=== PATIENT | female | born 1980 | race African-American/Black ===

== ENCOUNTER 2016-07-28 18:19 | Emergency (ER) | payer OTHER ==
[~2016-07-28] VITALS: Ht 157.5 cm; Wt 120.0 kg
[~2016-07-28 18:19] MED LIST: GLUCTAB PO; PROBCAP4 PO
[2016-07-28 18:28] VITALS: BP 139/82; PULSE 96; RESP 16; TEMP 98.5; O2SAT 99
--- NOTE | 2016-07-28 18:48 | PD ---
Physical Exam Time Seen by Provider: 18:44 Narrative 36yo F, 22 weeks 4 days , c/o neck pain, back pain, upper and lower abdominal pain. Denies hitting head or LOC. Arrived via [facility]. Feels baby moving. Anthony vomiting. Called L&D and requested medical clearance first. Cervical collar placed in triage. Patient stable. Patient seen in triage. Awaiting bed placement. Data Data Last Documented VS Vital Signs Date Time Temp Pulse Resp B/P Pulse Ox O2 Delivery O2 Flow Rate FiO2 07/28/16 18:28 98.5 96 16 139/82 99 MDM Supervised Visit with VANI: Tosha Espinoza Jul 28, 2016 18:48
[2016-07-28] MEDS ORDERED: OB CCAP2 (20:12)
[2016-07-28] MEDS ORDERED: ACETAMINOPHEN 325 MG TAB PO ONE (20:30)
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
== END 2016-07-28 23:10 | disposition home or self-care (01) ==
LOC: NEPD 18:19 → HOBED 23:10
DX: S13.4XXA Sprain of ligaments of cervical spine, initial encounter (principal); S06.0X0A Concussion without loss of consciousness, initial encounter; O26.892 Other specified pregnancy related conditions, second trimester; R10.9 Unspecified abdominal pain; Z3A.22 22 weeks gestation of pregnancy; V43.52XA Car driver injured in collision with other type car in traffic accident, initial encounter; Y93.9 Activity, unspecified; Y92.9 Unspecified place or not applicable; Y99.9 Unspecified external cause status
CPT/HCPCS: 70450; 72125; 99284; L0150

== ENCOUNTER → 2016-09-02 | Outpatient (CLI) | payer OTHER ==
[~2016-09-02] MED LIST changes: -GLUCTAB PO; +OB CCAP2; -PROBCAP4 PO
== END ==
LOC: HPND 10:22
PROVIDERS: ATTEND Obstetrics & Gynecology
DX: O24.414 Gestational diabetes mellitus in pregnancy, insulin controlled (principal); Z3A.23 23 weeks gestation of pregnancy
CPT/HCPCS: 76811; 76825; 76827; 93325

== ENCOUNTER → 2016-09-29 | Outpatient (CLI) | payer OTHER | LOC: HPND 09:46 | PROVIDERS: ATTEND Obstetrics & Gynecology | DX: O24.012 Pre-existing type 1 diabetes mellitus, in pregnancy, second trimester (principal); O09.522 Supervision of elderly multigravida, second trimester; O99.212 Obesity complicating pregnancy, second trimester; E66.01 Morbid (severe) obesity due to excess calories; Z68.42 Body mass index [BMI] 45.0-49.9, adult | CPT/HCPCS: 76816 ==

== ENCOUNTER 2016-10-24 07:30 | Inpatient (IN) | payer OTHER ==
[~2016-10-24] VITALS: Ht 157.5 cm; Wt 122.0 kg
--- NOTE | 2016-11-27 14:50 | MH ---
cc: VINOD KEN M.D. DATE OF ADMISSION: 11/28/2016 DATE OF 1980 PATIENT HISTORY The patient is a 36-year-old female 3, para 2, last menstrual period was February 22, 2016. Estimated due date is December 04, 2016. The patient is 39 weeks gestation. The patient's course has been complicated by type 2 diabetes mellitus. The patient had not been treated previously to her conception. She has been managed by an brick paving checker, Dr. Raphael, using NPH up to 100 units q. h.s. and sliding scale of regular NovoLog before meals. The patient's blood sugars have been in a good control range with fasting blood sugars below 100. The patient's recent hemoglobin A1c was 5.8. The patient's has also been significant in the context that her spouse unexpectedly during the first trimester. The patient has been struggling emotionally but managing well. OBSTETRICAL HISTORY The patient has a history of group B strep. Her blood type is A+, sickle cell negative. Previous pregnancies 1999, she had a vaginal of a female weighing 6 pounds 3 ounces. In 2002 she had a for her son who weighed 8 pounds 11 ounces. The patient also has been scheduled for a tubal ligation at the time of her elective repeat section. PAST MEDICAL HISTORY Type 2 diabetes, obesity. Chronic hypertension, is managed off medication. The patient's history of advanced maternal age with normal genetic analysis. ALLERGIES The patient has no known drug allergies. CURRENT MEDICATIONS As stated above. PAST SURGICAL HISTORY Status post hysteroscopy in 2014 and also had section 2002. SOCIAL HISTORY The patient is a , a single mom, employed as a school counselor, guidance counselor. She denies the use of tobacco, alcohol or illicit substances. Drug screen was negative during this . PHYSICAL EXAMINATION GENERAL: The patient's physical exam the patient well-appearing, well-nourished female in no acute stress. VITAL SIGNS: Stable. Blood pressures 120/80. She weighs 275 pounds. She is 5 feet 2. BMI is over 43. The patient's heart rate is in the 140s and reactive. Recent nonstress test was category one and reactive. HEENT/NECK: Shows no adenopathy. Neck is supple. Full range of motion. LUNGS: Lungs were clear in all moss. CARDIAC: Regular rate and rhythm. ABDOMEN: Abdomen is obese, gravid, fundal height measures 42 cm. PELVIC: Exam is deferred. The patient is not having any symptoms of labor, bleeding or leakage of fluid. EXTREMITIES: Extremities are symmetrical, full range of motion. She has 1+ pitting edema. There is no clonus or rebound. There is no cyanosis, clubbing or edema. NEUROLOGIC: Exam is grossly intact, nonfocal. ASSESSMENT The patient is 39 weeks intrauterine gestation, previous section for elective repeat section and tubal ligation, history of type 2 diabetes managed on insulin, chronic hypertension, stable off medication, morbid obesity, history of group B strep positive. Vinod Ken MD [facility]/EO /5:35 PM /2:48 PM
[2016-11-28] VITALS (21 sets, daily range): BP systolic 118–131; BP diastolic 73–83; PULSE 65–86; RESP 16–22; TEMP 97.7–98.5; O2SAT 99–100
[2016-11-28 06:37] LABS: AUTOMATED NEUTROPHIL # 4.2 TH/MM3 (1.8-7.7); BASOPHIL % 0.3 % (0.0-2.0); EOSINOPHIL # 0.1 TH/MM3 (0-0.4); HEMATOCRIT 37.7 % (35.0-46.0); HEMO FLAGS DIFF FINAL; LYMPHOCYTE # 2.2 TH/MM3 (1.0-4.8); MEAN CELL VOLUME 79.3 FL (80.0-100.0); MEAN CORPUSCULAR HEMOGLOBIN 25.7 PG (27.0-34.0); MEAN CORPUSCULAR HGB CONC 32.4 % (32.0-36.0); MONO % 8.3 % (0.0-8.0); NEUT % 59.4 % (16.0-70.0); PLATELET COUNT 263 TH/MM3 (150-450); RED BLOOD COUNT 4.75 MIL/MM3 (4.00-5.30); RED CELL DISTRIBUTION WIDTH 17.4 % (11.6-17.2)
[2016-11-28 06:48] LABS: BACTERIA, URINE OCC /hpf; BLOOD, URINE NEG (NEG); COMMENT (UR) CULT NOT INDICATED; CULTURE IF INDICATED CULT NOT INDICATED; GLUCOSE,URINE NEG (NEG); KETONE, URINE 10 mg/dL (NEG); MUCUS URINE FEW /lpf (OCC); NITRITE,URINE NEG (NEG); PH, URINE 6.5 (5.0-8.5); SQUAMOUS EPITHELIAL CELL URINE 6 /hpf (0-5); URINE COLOR YELLOW (YELLW/STRAW)
[2016-11-28] MEDS ORDERED: ONDANSETRON HCL 4 MG/2 ML VIAL ONE (07:12)
[2016-11-28] MEDS ORDERED: OXYTOCIN 10 UNIT/ML AMP ONE (07:12)
[2016-11-28] MEDS ORDERED: MORPHINE SULFATE PF 5 MG/10 ML VIAL ONE (07:12)
[2016-11-28] MEDS ORDERED: LACTATED RINGER'S 1000 ML IV ONE (07:15)
[2016-11-28] MEDS ORDERED: CITRIC ACID-SODIUM CITRATE LIQ 30 ML UDC PO SCH (07:15)
[2016-11-28] MEDS ORDERED: ceFAZolin 2 GM PREMIX 50 ML IV SCH (07:15)
[2016-11-28] MEDS ORDERED: LACTATED RINGER'S 1000 ML IV SCH (07:15)
[2016-11-28] MEDS ORDERED: EPIDURAL-DIPHENHYDRAMINE HCL 50 MG CAP PO PRN (07:30)
[2016-11-28] MEDS ORDERED: oxyCODONE/ACETAMINOPHEN 5 MG/325 MG TAB PO PRN (07:30)
[2016-11-28] MEDS ORDERED: SODIUM CHLORIDE 0.9% FLUSH 10 ML FLUSH IV FLUSH PRN (07:30)
[2016-11-28] MEDS ORDERED: EPIDURAL-DO NOT ADMINISTER ANTICOAGULANTS PRN (07:30)
[2016-11-28] MEDS ORDERED: OXYTOCIN 30 UNITS-500ML PREMIX 500 ML IV ONE (07:30)
[2016-11-28] MEDS ORDERED: EPIDURAL-NALOXONE HCL 0.4 MG/ML AMP IV PRN (07:30)
[2016-11-28] MEDS ORDERED: EPIDURAL-DIPHENHYDRAMINE HCL 50 MG/ML VIAL IV PUSH PRN (07:30)
[2016-11-28] MEDS ORDERED: EPIDURAL-NO SYSTEMIC NARCOTICS PRN (07:30)
[2016-11-28] MEDS ORDERED: ACETAMINOPHEN 325 MG TAB PO PRN (07:30)
[2016-11-28] MEDS ORDERED: ONDANSETRON HCL 4 MG/2 ML VIAL IV PUSH PRN (07:30)
[2016-11-28] MEDS ORDERED: GLUCAGON 1 MG/ML VIAL OTHER PRN (07:30)
[2016-11-28] MEDS ORDERED: DEXTROSE 50% IN WATER 50 ML VIAL(D50) IV PRN (07:30)
[2016-11-28] MEDS ORDERED: ACETAMINOPHEN 1000 MG/100 ML VIAL IV ONE (08:00)
[2016-11-28] MEDS ORDERED: ACETAMINOPHEN 1000 MG/100 ML 100 ML IV ONE (08:08)
--- NOTE | 2016-11-28 08:54 | PD.OB.DELI ---
Procedure Note Section Procedure Performed by Vinod Jay Procedure: Repeat Low Transverse Sec (with tubal ligation) Indication for delivery: Desired elective repeat Previous condition: Other Informed consent obtained: For anesthesia, For procedure Confirmed correct: Patient, Procedure, Site, Time-out taken Anesthesia: Spinal Medication prior to procedure: As documented in eMAR Monitoring during procedure: Blood pressure monitoring, media monitor, doppler, Pulse oximetry Sterile preparation: Duraprep, In usual fashion Position: Supine with wedge to right side, Supine with safety belt applied Operative Features Skin Incision: Pfannenstiel Uterine Incision: Low transverse w/knife / blunt ext, Low transverse w/knife / scissors Membranes Ruptured: Artificially Presentation: Occiput anterior Delivery date: Nov 28, 2016 Delivery time: 00:00 Delivery of infant: Assisted (kiwi vacuum) : Male One Minute : 8 Five Minute : 9 Weight: 7/5 Status of infant: Viable Placenta delivered: Intact Medications: Antibiotics, Oxytocin Procedure tolerated: Well Maternal Condition: Stable Condition: Stable Vinod Jay MD Nov 28, 2016 08:54
[2016-11-28] MEDS ORDERED: SODIUM CHLORIDE 0.9% FLUSH 10 ML FLUSH IV FLUSH SCH (09:00)
[2016-11-28] MEDS: INSULIN NovoLIN REGULAR SUPPLEMENTAL SCALE SQ SCH ×3 (11:00→21:00)
[2016-11-28] MEDS ORDERED: LACTATED RINGER'S 1000 ML INJ 1,000 ML IV SCH (12:21)
[2016-11-28] MEDS ORDERED: OXYTOCIN 30 UNITS-500ML PREMIX 500 ML IV PRN (17:30)
[2016-11-28] MEDS: oxyCODONE/ACETAMINOPHEN 5 MG/325 MG TAB PO PRN (23:14)
[2016-11-28] MEDS: IBUPROFEN 600 MG TAB PO PRN (23:14)
[2016-11-29 03:40] VITALS: BP 100/61; PULSE 70; RESP 18; TEMP 97.7
[2016-11-29 03:59] LABS: AUTOMATED NEUTROPHIL # 4.2 TH/MM3 (1.8-7.7); BASOPHIL % 0.3 % (0.0-2.0); EOSINOPHIL # 0.1 TH/MM3 (0-0.4); EOSINOPHIL % 2.1 % (0.0-4.0); HEMATOCRIT 34.2 % (35.0-46.0); HEMO FLAGS DIFF FINAL; LYMPH % 24.2 % (9.0-44.0); LYMPHOCYTE # 1.5 TH/MM3 (1.0-4.8); MEAN CELL VOLUME 79.5 FL (80.0-100.0); MEAN CORPUSCULAR HEMOGLOBIN 25.5 PG (27.0-34.0); MONO % 5.5 % (0.0-8.0); NEUT % 67.9 % (16.0-70.0); PLATELET COUNT 216 TH/MM3 (150-450); RED CELL DISTRIBUTION WIDTH 16.9 % (11.6-17.2); WHITE BLOOD COUNT 6.2 TH/MM3 (4.0-11.0)
[2016-11-29] MEDS: INSULIN NovoLIN REGULAR SUPPLEMENTAL SCALE SQ SCH ×2 (07:00→11:00)
[2016-11-29] MEDS: oxyCODONE/ACETAMINOPHEN 5 MG/325 MG TAB PO PRN ×3 (07:19→22:50)
[2016-11-29] MEDS: IBUPROFEN 600 MG TAB PO PRN ×3 (07:19→22:49)
[2016-11-29 07:50] VITALS: BP 109/62; PULSE 68; RESP 18; TEMP 98.2
[2016-11-29] MEDS: HEPARIN SODIUM - SQ 10,000 UNITS/ML VIAL SQ SCH ×2 (09:47→21:14)
--- NOTE | 2016-11-29 10:09 | HHI.OB ---
Subjective Post Operative Day: 1 Remarks FS good,93, OOB , ambulating, voiding, pain controlled Objective Vitals/I&O Vital Signs Date Time Temp Pulse Resp B/P (MAP) Pulse Ox O2 Delivery O2 Flow Rate FiO2 11/29/16 03:40 97.7 70 18 100/61 (74) 11/28/16 23:23 98.5 86 22 118/75 (89) 11/28/16 19:40 98.3 83 20 120/77 (91) 11/28/16 15:00 98.5 74 16 11/28/16 15:00 119/74 (89) 11/28/16 10:35 98.2 66 20 121/78 (92) Result Diagram: 11/29/168 Objective Remarks GENERAL: Well-nourished, well-developed patient. CARDIOVASCULAR: Regular rate and rhythm without murmurs, gallops, or rubs. RESPIRATORY: Breath sounds equal bilaterally. No accessory muscle use. ABDOMEN/GI: Abdomen soft, non-tender, bowel sounds present. Incision: zeeshan Clean, dry and intact. Fundus: Firm, non-tender at umbilicus. GENITOURINARY: Light to moderate bleeding. EXTREMITIES: No cyanosis or edema, non-tender, without signs of DVT. Medications and IVs Current Medications Medications (Trade) Dose Ordered Sig/Brinda Route Start Time Stop Time Status Last Admin (Bicitra Liq) 30 ml OYSTER CULLER PO 11/28/16 07:15 12/01/16 07:14 11/28/16 07:10 Oxytocin 500 ml @ 100 mls/hr UNSCH X1 PRN IV 11/28/16 17:30 11/29/16 17:29 11/28/16 12:57 (NS Flush) 2 ml BID IV FLUSH 11/28/16 09:00 (NS Flush) 2 ml UNSCH PRN IV FLUSH 11/28/16 07:30 (Mylicon Chew) 80 mg QID PRN PO 11/28/16 07:30 (Tylenol) 650 mg Q6H PRN PO 11/28/16 07:30 (Motrin) 600 mg Q6H PRN PO 11/28/16 07:30 11/29/16 07:19 (Percocet 5-325 Mg) 1 tab Q4H PRN PO 11/28/16 07:30 (Percocet 5-325 Mg) 2 tab Q4H PRN PO 11/28/16 07:30 11/29/16 07:19 (Tracy-Colace) 2 tab Q12H PRN PO 11/28/16 07:30 (M-M-R Ii Inj) 0.5 ml ONCE ONCE SQ 11/29/16 16:00 11/29/16 16:01 (Boostrix Inj) 0.5 ml ONCE ONCE IM 11/29/16 16:00 11/29/16 16:01 (Zofran Inj) 4 mg Q6H PRN IV PUSH 11/28/16 07:30 (D50w (Vial) Inj) 50 ml UNSCH PRN IV 11/28/16 07:30 (Glucagon Inj) 1 mg UNSCH PRN OTHER 11/28/16 07:30 (NovoLIN R SUPPLEMENTAL SCALE) 1 ACHS SLIDING SCALE SQ 11/28/16 11:00 (Heparin Inj) 5,000 units Q12H SQ 11/29/16 09:00 11/29/16 09:47 Assessment/Plan Problem List: (1) S/P repeat low transverse ICD Codes: Z98.891 - History of uterine scar from previous surgery Status: Acute (2) Diabetes ICD Codes: E11.9 - Diabetes Status: Acute (3) Obesity ICD Codes: E66.9 - Obesity Status: Chronic Assessment and Plan s/p repeat LSTC, BTL, gest DM A2 on insulin in , POD #1 obesity 1. continue post op care, FS controlled with no insulin required yet 2. pain controlled, OOB, heparin SQ ordered Discharge Planning routine POD#3 Attending Attestation pt seen by Karma Hahn MD Nov 29, 2016 10:09
[2016-11-29] MEDS ORDERED: diphenhydrAMINE HCL 50 MG CAP PO PRN (10:15)
[2016-11-29] MEDS ORDERED: DIPHTH/TETANUS/ACEL PERTUSSIS (BOOSTER) 0.5 ML VIAL/PFS IM ONE (16:00)
[2016-11-29] MEDS ORDERED: MEASLES, MUMPS, RUBELLA VACCINE 0.5 ML VIAL SQ ONE (16:00)
[2016-11-29 21:21] VITALS: RESP 20; TEMP 98.1
[2016-11-29 21:22] VITALS: BP 110/80; PULSE 76
[2016-11-29] MEDS: DOCUSATE SODIUM 50 MG/SENNA 8.6 MG TAB PO PRN (22:50)
[2016-11-29] MEDS: SIMETHICONE 80 MG CHEWABLE TAB PO PRN (22:50)
[2016-11-30] MEDS: INSULIN NovoLIN REGULAR SUPPLEMENTAL SCALE SQ SCH ×4 (07:00→21:00)
[2016-11-30] MEDS: oxyCODONE/ACETAMINOPHEN 5 MG/325 MG TAB PO PRN ×3 (07:20→19:02)
[2016-11-30] MEDS: SIMETHICONE 80 MG CHEWABLE TAB PO PRN (07:21)
[2016-11-30] MEDS: IBUPROFEN 600 MG TAB PO PRN ×3 (07:21→19:02)
--- NOTE | 2016-11-30 08:45 | HHI.OB ---
Subjective Post Operative Day: 2 Remarks no complaints, FS good, +flatus Objective Vitals/I&O Vital Signs Date Time Temp Pulse Resp B/P (MAP) Pulse Ox O2 Delivery O2 Flow Rate FiO2 11/29/16 23:49 18 11/29/16 23:49 18 11/29/16 21:22 76 110/80 (90) 11/29/16 21:21 98.1 20 Result Diagram: 11/29/16 0318 Objective Remarks GENERAL: Well-nourished, well-developed patient. CARDIOVASCULAR: Regular rate and rhythm without murmurs, gallops, or rubs. RESPIRATORY: Breath sounds equal bilaterally. No accessory muscle use. ABDOMEN/GI: Abdomen soft, non-tender, bowel sounds present. Incision: zeeshan Clean, dry and intact. Fundus: Firm, non-tender at umbilicus. GENITOURINARY: Light to moderate bleeding. EXTREMITIES: No cyanosis or edema, non-tender, without signs of DVT. Medications and IVs Current Medications Medications (Trade) Dose Ordered Sig/Brinda Route Start Time Stop Time Status Last Admin (Bicitra Liq) 30 ml HELPER TEACHER PO 11/28/16 07:15 12/01/16 07:14 11/28/16 07:10 (NS Flush) 2 ml BID IV FLUSH 11/28/16 09:00 (NS Flush) 2 ml UNSCH PRN IV FLUSH 11/28/16 07:30 (Mylicon Chew) 80 mg QID PRN PO 11/28/16 07:30 11/30/16 07:21 (Tylenol) 650 mg Q6H PRN PO 11/28/16 07:30 (Motrin) 600 mg Q6H PRN PO 11/28/16 07:30 11/30/16 07:21 (Percocet 5-325 Mg) 1 tab Q4H PRN PO 11/28/16 07:30 (Percocet 5-325 Mg) 2 tab Q4H PRN PO 11/28/16 07:30 11/30/16 07:20 (Tracy-Colace) 2 tab Q12H PRN PO 11/28/16 07:30 11/29/16 22:50 (Zofran Inj) 4 mg Q6H PRN IV PUSH 11/28/16 07:30 (D50w (Vial) Inj) 50 ml UNSCH PRN IV 11/28/16 07:30 (Glucagon Inj) 1 mg UNSCH PRN OTHER 11/28/16 07:30 (NovoLIN R SUPPLEMENTAL SCALE) 1 ACHS SLIDING SCALE SQ 11/28/16 11:00 (Heparin Inj) 5,000 units Q12H SQ 11/29/16 09:00 11/29/16 21:14 (Benadryl) 50 mg Q6H PRN PO 11/29/16 10:15 11/29/16 13:02 Assessment/Plan Problem List: (1) S/P repeat low transverse ICD Codes: Z98.891 - History of uterine scar from previous surgery Status: Acute (2) Diabetes ICD Codes: E11.9 - Diabetes Status: Acute (3) Obesity ICD Codes: E66.9 - Obesity Status: Chronic Assessment and Plan s/p repeat LSTC, BTL, gest DM A2 on insulin in , POD #2, obesity 1. continue post op care, FS controlled with no insulin required yet 2. pain controlled, OOB, heparin SQ ordered Discharge Planning routine POD#3 Attending Attestation pt seen by Karma Hahn MD Nov 30, 2016 08:45
[2016-11-30] MEDS: DOCUSATE SODIUM 50 MG/SENNA 8.6 MG TAB PO PRN (09:08)
[2016-11-30] MEDS: HEPARIN SODIUM - SQ 10,000 UNITS/ML VIAL SQ SCH ×2 (09:08→21:51)
[2016-11-30 09:30] VITALS: BP 121/72; PULSE 78; RESP 18; TEMP 97.5
[2016-11-30] MEDS ORDERED: WITCH HAZEL 50%/GLYCERIN 12.5% 40 PAD JAR TOPICAL PRN (17:15)
[2016-11-30 19:29] VITALS: BP 148/93; PULSE 70; RESP 18; TEMP 98.4
--- NOTE | 2016-11-30 21:03 | MP ---
cc: OLINDA KEN M.D. DATE OF SURGERY 11/28/2016 PREOPERATIVE DIAGNOSES 1. Patient term intrauterine , previous section for elective repeat section and tubal ligation. 2. History of type 2 diabetes managed with insulin. 3. History of chronic hypertension. 4. Morbid obesity. 5. Advanced maternal age. POSTOPERATIVE DIAGNOSES 1. Patient term intrauterine , previous section for elective repeat section and tubal ligation. 2. History of type 2 diabetes managed with insulin. 3. History of chronic hypertension. 4. Morbid obesity. 5. Advanced maternal age. 6. Delivery of viable male infant. PROCEDURE Repeat low transverse section and lysis of adhesions, bilateral tubal ligation. Delivery of male infant. ANESTHESIA Spinal. ESTIMATED BLOOD LOSS 650 cc. DRAINS Salgado to gravity. OPERATIVE FINDINGS The patient had male with nuchal cord x1, easily reduced, clear fluid. Baby weighed 7 pounds 5 ounces. Apgars were 8 at one minute and 9 at five. INDICATIONS FOR PROCEDURE Patient with a complicated high risk with type 2 diabetes, blood sugars controlled on insulin, chronic hypertension managed with weight management did not require medication. The patient had a previous section and elected for repeat section at term and also consented for tubal ligation at the time of . The patient prophylactically received 2 grams of Ancef. Blood sugar was 127 on admission. OPERATIVE REPORT The patient was taken to the operating room in stable condition, underwent spinal anesthetic without complication with good result. She was prepped and draped with a Salgado inserted by sterile technique. She had sequentials placed on her lower extremities for VTE prophylaxis. After she was prepped and draped, a time-out was conducted and agreed by all present in the room. The patient had excellent pain management. The previous Pfannenstiel incision was utilized using a #10 blade taking the incision through the skin down through the subcutaneous layer identifying dense and fibrous adhesions. This required meticulous dissection to open the fascia laterally dissecting the rectus from the fascia and then the muscles in the midline identifying the peritoneum. There were adhesions involving the anterior uterine wall which were taken down by sharp dissection. Once the lower uterine segment was exposed a transverse incision was made in the lower uterine segment with clear fluid. The Kiwi vacuum extractor was utilized to allow careful delivery of the infant. Again the patient is morbidly obese with a difficult pelvic anatomy. The infant was delivered without incident. Cord was doubly clamped and cut and the infant was taken in the isolette by the nursery staff present with good tone and cry noted. Cord samples obtained for typing. Placenta and cord removed intact with trailing membranes and sent for donation. Uterus was examined. There is no retained tissue. It was closed with a double layer of 0 Monocryl, first was a running locking suture followed by a second imbricating suture. Fallopian tubes were identified by retraction. The mesentery was opened with the Bovie and then opening the mesentery to allow placement of 2-0 plain sutures proximally and distally and then the isthmic portion of the tube was excised. The exposed luminal surfaces of the tubes were cauterized. No active bleeding was noted. Both tubes were sent and labeled appropriately. The bilateral tubal ligation was accomplished without incident or bleeding. At the completion of the tubal, re-examination of the lower uterine segment was dry. No active bleeding or hematoma. Full count was made and correct. The peritoneal layer was closed. Prior to closing the peritoneum a piece of Interceed was introduced and placed over the lower uterine segment to prevent postoperative adhesions. The peritoneum was reapproximated and closed. The muscle bellies reapproximated with interrupted mattress suture of 2-0 Monocryl. The fascia was then closed with 0 Vicryl using a separate suture starting from each angle and bringing towards the midline. Subcutaneous space was irrigated. Any small bleeders were cauterized and space was closed with 2-0 Monocryl. Freddy were used to reapproximate skin edge. Dressing was applied. The final count was correct. The patient was stable. MD CHACORTA Saleem/ALEXYS /8:54 AM /8:47 PM
[2016-12-01] MEDS: DOCUSATE SODIUM 50 MG/SENNA 8.6 MG TAB PO PRN (00:58)
[2016-12-01] MEDS: oxyCODONE/ACETAMINOPHEN 5 MG/325 MG TAB PO PRN ×2 (00:58→06:40)
[2016-12-01] MEDS: IBUPROFEN 600 MG TAB PO PRN ×2 (00:58→06:39)
[2016-12-01] MEDS: INSULIN NovoLIN REGULAR SUPPLEMENTAL SCALE SQ SCH (07:00)
--- NOTE | 2016-12-01 07:36 | HHI.DCPOC ---
Discharge Care Plan Diagnosis: (1) S/P repeat low transverse Your Health Problems Are: delivery Report Symptoms to Your Doctor -Temperature above 100.5 degrees -Redness, of incision or excessive or foul smelling drainage -Unusual pain or calf pain -Increased vaginal bleeding -Painful or difficulty urinating -Feelings of extreme sadness or anxiety after 2 weeks Goals to Promote Your Health * To prevent worsening of your condition and complications * To maintain your health at the optimal level Directions to Meet Your Goals Take your medications as prescribed Follow your dietary instruction Follow activity as directed Ensure plenty of rest for recovery Drink fluids for hydration Keep your appointments as scheduled Take your immunizations and boosters as scheduled If your symptoms worsen call your PCP, if no PCP go to Urgent Care Center or Emergency Room Smoking is Dangerous to Your Health. Avoid second hand smoke Call the 24-hour crisis hotline for domestic abuse at Domonique Harrison MD Dec 01, 2016 07:35
[2016-12-01 08:20] VITALS: BP 130/92; PULSE 96; RESP 20; TEMP 97.8
[2016-12-01] MEDS: HEPARIN SODIUM - SQ 10,000 UNITS/ML VIAL SQ SCH (08:22)
[2016-12-01] MEDS ORDERED: OXYC1TAB63 PO (11:17)
[2016-12-01] MEDS ORDERED: IBUP-232 PO (11:17)
[2016-12-01] MEDS ORDERED: PERI8.6T PO (11:17)
--- NOTE | 2016-12-01 11:20 | HHI.OB ---
Subjective Post Operative Day: 3 Objective Vitals/I&O Vital Signs Date Time Temp Pulse Resp B/P (MAP) Pulse Ox O2 Delivery O2 Flow Rate FiO2 12/01/16 08:20 97.8 96 20 130/92 (105) 11/30/16 19:29 98.4 18 11/30/16 19:29 70 148/93 (111) Result Diagram: 11/29/16 0318 Objective Remarks GENERAL: Well-nourished, well-developed patient. Morbid obese. CARDIOVASCULAR: Regular rate and rhythm without murmurs, gallops, or rubs. RESPIRATORY: Breath sounds equal bilaterally. No accessory muscle use. ABDOMEN/GI: Abdomen soft, non-tender, bowel sounds present. Incision: zeeshan intact. Fundus: Firm, non-tender at umbilicus. GENITOURINARY: Light to moderate bleeding. EXTREMITIES: No cyanosis or edema, non-tender, without signs of DVT. Medications and IVs Current Medications Medications (Trade) Dose Ordered Sig/Brinda Route Start Time Stop Time Status Last Admin (NS Flush) 2 ml BID IV FLUSH 11/28/16 09:00 (NS Flush) 2 ml UNSCH PRN IV FLUSH 11/28/16 07:30 (Mylicon Chew) 80 mg QID PRN PO 11/28/16 07:30 11/30/16 07:21 (Tylenol) 650 mg Q6H PRN PO 11/28/16 07:30 (Motrin) 600 mg Q6H PRN PO 11/28/16 07:30 12/01/16 06:39 (Percocet 5-325 Mg) 1 tab Q4H PRN PO 11/28/16 07:30 (Percocet 5-325 Mg) 2 tab Q4H PRN PO 11/28/16 07:30 12/01/16 06:40 (Tracy-Colace) 2 tab Q12H PRN PO 11/28/16 07:30 12/01/16 00:58 (Zofran Inj) 4 mg Q6H PRN IV PUSH 11/28/16 07:30 (D50w (Vial) Inj) 50 ml UNSCH PRN IV 11/28/16 07:30 (Glucagon Inj) 1 mg UNSCH PRN OTHER 11/28/16 07:30 (NovoLIN R SUPPLEMENTAL SCALE) 1 ACHS SLIDING SCALE SQ 8/25/17 11:00 (Heparin Inj) 5,000 units Q12H SQ 11/29/16 09:00 12/01/16 08:22 (Benadryl) 50 mg Q6H PRN PO 11/29/16 10:15 11/29/16 13:02 (Tucks Pads) 1 applic QID PRN TOPICAL 11/30/16 17:15 11/30/16 17:11 Assessment/Plan Problem List: (1) S/P repeat low transverse ICD Codes: Z98.891 - History of uterine scar from previous surgery Status: Acute (2) Diabetes ICD Codes: E11.9 - Diabetes Status: Acute (3) Obesity ICD Codes: E66.9 - Obesity Status: Chronic Assessment and Plan s/p repeat LSTC, BTL, gest DM A2 on insulin in , POD #3, obesity 1. continue post op care, FS controlled with no insulin required yet 2. pain controlled, OOB, heparin SQ ordered 3. infant - circ done today 4. d/c to home today Discharge Planning routine POD#3 Domonique Harrison MD Dec 01, 2016 11:19
== END 2016-12-01 14:23 | disposition home or self-care (01) | DRG 765 ==
LOC: H2EB 11-28 05:36 → H1EA 11-28 10:15
PROVIDERS: ADMIT Obstetrics & Gynecology; ATTEND Obstetrics & Gynecology
PROC: 10D00Z1 Extraction of Products of Conception, Low, Open Approach (ICD-10-PCS; principal; 2016-11-28)
PROC: 0UB70ZZ Excision of Bilateral Fallopian Tubes, Open Approach (ICD-10-PCS; 2016-11-28)
PROC: 3E0P05Z Introduction of Adhesion Barrier into Female Reproductive, Open Approach (ICD-10-PCS; 2016-11-28)
DX: O34.211 Maternal care for low transverse scar from previous cesarean delivery (principal); O24.12 Pre-existing type 2 diabetes mellitus, in childbirth; Z68.42 Body mass index [BMI] 45.0-49.9, adult; O10.92 Unspecified pre-existing hypertension complicating childbirth; E66.01 Morbid (severe) obesity due to excess calories; E11.9 Type 2 diabetes mellitus without complications; O99.214 Obesity complicating childbirth; O69.81X0 Labor and delivery complicated by cord around neck, without compression, not applicable or unspecified; Z37.0 Single live birth; Z30.2 Encounter for sterilization; Z3A.39 39 weeks gestation of pregnancy; Z79.4 Long term (current) use of insulin
CPT/HCPCS: 59025; 81001; 82948; 85025; 86850; 86900; 86901; 88302; 90715; C1765; J0131; J0690; J1200; J1644; J2274; J2405; J2590; J7120; Q0163

== ENCOUNTER 2017-09-14 17:13 | Emergency (ER) | payer MEDICAID, OTHER ==
[~2017-09-14 17:13] MED LIST changes: +IBUP-232 PO; +OXYC1TAB63 PO; +PERI8.6T PO
[2017-09-14 17:24] VITALS: BP 179/90; PULSE 89; RESP 20; TEMP 98.5; O2SAT 99
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
== END 2017-09-14 18:35 | disposition home or self-care (01) ==
LOC: PHEFT 17:13
DX: J06.9 Acute upper respiratory infection, unspecified (principal); D64.9 Anemia, unspecified; E11.9 Type 2 diabetes mellitus without complications; K21.9 Gastro-esophageal reflux disease without esophagitis
CPT/HCPCS: 87081; 87880; 99283